=== PATIENT | female | born 1970 | race Caucasian/White ===

== ENCOUNTER 2021-01-25 12:29 | Emergency (ER) | payer BC, OTHER ==
[2021-01-25 12:46] VITALS: TEMP 97.5; BMI 19.3
[2021-01-25] MEDS ORDERED: ACETAMINOPHEN 500 MG TABLET (FP) PO ONE (13:55)
[2021-01-25 14:55] LABS: BASO % 0.5 % (0-2.0); EOS % 0.2 % (0-4.5); HEMATOCRIT 25.2 % (32.4-45.2); HEMOGLOBIN 8.8 GM/dL (10.7-15.3); LYMPH % 34.9 % (8-40); MCH 35.8 pg (25.7-33.7); MCHC 34.8 g/dl (32.0-36.0); MEAN CELL VOLUME 102.7 fl (80-96); MEAN PLT VOLUME 7.6 fl (7.5-11.1); NEUT % 54.4 % (42.8-82.8); PLATELET COUNT 250 K/MM3 (134-434); RBC 2.45 M/mm3 (3.60-5.2); RDW 18.8 % (11.6-15.6)
[2021-01-25 14:57] LABS: WHITE BLOOD COUNT 1.7 K/mm3 (4.0-10.0)
[2021-01-25 15:21] LABS: ALBUMIN 4.6 g/dl (3.4-5.0); BLOOD UREA NITROGEN 19.2 mg/dL (7-18); CALCIUM 9.7 mg/dL (8.5-10.1)
[2021-01-25 15:24] LABS: CREATININE 1.4 mg/dL (0.55-1.3)
[2021-01-25] MEDS ORDERED: ACETAMINOPHEN 325 MG TABLET (FP) ONE (15:25)
[2021-01-25 15:26] LABS: BILIRUBIN,TOTAL 0.4 mg/dL (0.2-1); TOT PROT 7.7 g/dl (6.4-8.2)
[2021-01-25 15:45] LABS: ANISOCYTOSIS 1+; MACROCYTOSIS 0; OVALOCYTE 1+; PLATELET ESTIMATE NORMAL
[2021-01-25] MEDS ORDERED: SODIUM CHLORIDE 0.9% 500 ML INFUS.BAG IV ONE (16:21)
[2021-01-25 17:32] VITALS: BP 115/86; PULSE 88
== END 2021-01-25 17:44 | disposition left against medical advice (07) ==
LOC: JER 12:29
DX: M53.3 Sacrococcygeal disorders, not elsewhere classified (principal)
CPT/HCPCS: 36415; 72170-TC-FY; 72220-TC-FY; 80053; 85025; 99284-25